=== PATIENT | female | born 1985 | race Caucasian/White ===

== ENCOUNTER 2018-12-11 20:59 | Inpatient (IN) | payer MEDICAID ==
[2018-12-11] MEDS: LACTATED RINGER'S 1,000 ML IV ×2 (21:33→23:47)
[2018-12-11 21:52] LABS: ADD UMIC YES; UR ASCORBIC ACID NEGATIVE (NEGATIVE); UR BACTERIA FEW /HPF (NONE SEEN); UR BILIRUBIN (Dip) NEGATIVE (NEGATIVE); UR BLOOD (Dip) 1+ mg/dL (NEGATIVE); UR CLARITY CLEAR (CLEAR); UR COLOR STRAW (YELLOW); UR GLUCOSE (Dip) NEGATIVE (NEGATIVE); UR KETONES (Dip) NEGATIVE (NEGATIVE); UR LEUKOCYTE ESTERASE (Dip) NEGATIVE Leu/ul (NEGATIVE); UR NITRITE (Dip) NEGATIVE (NEGATIVE); UR RBC 1 /HPF (0-5); UR SPECIFIC GRAVITY (Dip) 1.002 (1.003-1.030); UR SQUAMOUS EPITHELIAL CELL FEW /HPF (FEW); UR TOTAL PROTEIN (Dip) NEGATIVE (NEGATIVE); UR UROBILINOGEN (Dip) NEGATIVE (NEGATIVE); UR WBC 0 /HPF (0-5)
[2018-12-11] MEDS: TERBUTALINE 1 MG/ML INJ SC (22:51)
[2018-12-11] MEDS: NIFEdipine 10 MG CAP PO (23:44)
[2018-12-12] MEDS: LACTATED RINGER'S 1,000 ML IV ×3 (00:40→19:02)
[2018-12-12] MEDS: MAGNESIUM SULFATE 4 GM/100 ML 100 ML IV (01:11)
[2018-12-12] MEDS: MAGNESIUM SULFATE 20 GM/500 ML 500 ML IV ×3 (01:39→22:54)
[2018-12-12 07:41] LABS: MAGNESIUM 5.3 mg/dl (1.7-2.5)
[2018-12-12] MEDS: ACETAMINOPHEN 325 MG TAB PO ×3 (07:55→20:18)
[2018-12-12] MEDS: PRENATAL VITAMIN PO (10:11)
[2018-12-12 13:08] LABS: MAGNESIUM 5.8 mg/dl (1.7-2.5)
[2018-12-12 18:50] LABS: MAGNESIUM 5.4 mg/dl (1.7-2.5)
[2018-12-13 01:44] LABS: MAGNESIUM 6.1 mg/dl (1.7-2.5)
[2018-12-13] MEDS: ACETAMINOPHEN 325 MG TAB PO ×2 (05:35→08:44)
[2018-12-13 07:37] LABS: MAGNESIUM 6.2 mg/dl (1.7-2.5)
[2018-12-13] MEDS: PRENATAL VITAMIN PO (08:44)
[2018-12-13] MEDS: MAGNESIUM SULFATE 20 GM/500 ML 500 ML IV (08:47)
[2018-12-13] MEDS: LACTATED RINGER'S 1,000 ML IV ×2 (08:49→18:31)
[2018-12-13 13:09] LABS: MAGNESIUM 5.1 mg/dl (1.7-2.5)
[2018-12-13] MEDS: NIFEdipine 10 MG CAP PO ×2 (15:56→22:42)
[2018-12-14] MEDS ORDERED: NIFEdipine 10 MG CAP PO
[2018-12-14] MEDS: LACTATED RINGER'S 1,000 ML IV (02:02)
[2018-12-14] MEDS: NIFEdipine 10 MG CAP PO (04:01)
== END 2018-12-14 10:30 | disposition home or self-care (01) | DRG 833 ==
LOC: OBT 20:59 → L-D 21:00
DX: O60.03 Preterm labor without delivery, third trimester (principal); Z3A.35 35 weeks gestation of pregnancy
CPT/HCPCS: 76815; 76817; 76818; 81001; 83735; 96360; 96361

== ENCOUNTER 2018-12-28 23:15 | Outpatient (CLI) | payer MEDICAID ==
[2018-12-29 00:52] LABS: ADD UMIC YES; UR ASCORBIC ACID 40 mg/dL (NEGATIVE); UR BACTERIA FEW /HPF (NONE SEEN); UR BILIRUBIN (Dip) NEGATIVE (NEGATIVE); UR BLOOD (Dip) 1+ mg/dL (NEGATIVE); UR CLARITY SLIGHTLY CLOUDY (CLEAR); UR COLOR AMBER (YELLOW); UR GLUCOSE (Dip) NEGATIVE (NEGATIVE); UR KETONES (Dip) 1+ mg/dL (NEGATIVE); UR LEUKOCYTE ESTERASE (Dip) NEGATIVE Leu/ul (NEGATIVE); UR MUCUS MANY /HPF (NONE SEEN); UR NITRITE (Dip) NEGATIVE (NEGATIVE); UR RBC 11 /HPF (0-5); UR SPECIFIC GRAVITY (Dip) 1.032 (1.003-1.030); UR SQUAMOUS EPITHELIAL CELL FEW /HPF (FEW); UR TOTAL PROTEIN (Dip) 1+ mg/dl (NEGATIVE); UR UROBILINOGEN (Dip) 2+ mg/dL (NEGATIVE); UR WBC 4 /HPF (0-5)
== END 2018-12-29 02:32 | disposition home or self-care (01) ==
LOC: OBT 23:15 → L-D 23:15 → OBT 12-29 02:32
DX: O62.9 Abnormality of forces of labor, unspecified (principal); Z3A.36 36 weeks gestation of pregnancy
CPT/HCPCS: 76818; 81001

== ENCOUNTER 2019-01-05 20:17 | Inpatient (IN) | payer MEDICAID ==
[2019-01-05] MEDS ORDERED: MISOPROSTOL 200 MCG TAB PR (22:00)
[2019-01-05] MEDS ORDERED: METHYLERGONOVINE 0.2 MG INJ IM (22:00)
[2019-01-05] MEDS ORDERED: CARBOPROST 250 MCG INJ IM (22:00)
[2019-01-05] MEDS ORDERED: OXYTOCIN 30 UNITS/LR 500 ML IV (22:00)
[2019-01-05 22:13] LABS: ADD MAN DIFF? NO
[2019-01-05 22:16] LABS: WHITE BLOOD COUNT 11.9 10^3/ul (4.8-10.8)
[2019-01-05 22:16] LABS: BASOPHILS % 0.3 % (0.0-2.0); EOSINOPHILS % 0.3 % (0.0-7.0); HEMATOCRIT 39.2 % (37.0-47.0); HEMOGLOBIN 13.4 g/dl (12.0-16.0); LYMPHOCYTES # 2.4 10^3/ul (0.8-2.9); LYMPHOCYTES % 19.8 % (15.0-51.0); MEAN CORPUSCULAR HGB CONC 34.2 g/dl (32.0-37.0); MEAN CORPUSCULAR VOLUME 87.9 fl (82.0-101.0); MEAN PLATELET VOLUME 11.4 fl (7.4-10.4); MONOCYTE # 0.9 10^3/ul (0.3-0.9); MONOCYTES % 7.2 % (0.0-11.0); NEUTROPHIL # 8.6 10^3/ul (1.6-7.5); NEUTROPHILS % 71.9 % (39.0-77.0); PLATELET COUNT 245 10^3/UL (140-415); RED BLOOD COUNT 4.46 10^6/ul (4.20-5.40)
[2019-01-05] MEDS: LACTATED RINGER'S 1,000 ML IV (22:19)
[2019-01-05] MEDS ORDERED: ALBUTEROL 0.083% (NEB) 2.5 MG/3 ML AMP HHN (22:30)
[2019-01-05] MEDS ORDERED: HYDROmorphONE 0.5 MG/0.5 ML SYG IV ×2 (22:30)
[2019-01-05] MEDS ORDERED: ONDANSETRON 4 MG INJ IV ×2 (22:30)
[2019-01-05] MEDS ORDERED: DIPHENHYDRAMINE 50 MG INJ IV (22:30)
[2019-01-05] MEDS: ONDANSETRON 4 MG INJ IV (22:30)
[2019-01-05] MEDS ORDERED: HYDROmorphONE 1 MG/5 ML IV SYRINGE IV ×3 (22:30)
[2019-01-05] MEDS: METOCLOPRAMIDE 10 MG INJ IV (22:30)
[2019-01-05] MEDS ORDERED: METOCLOPRAMIDE 10 MG INJ IV (22:30)
[2019-01-05] MEDS ORDERED: FENTAnyl 50 MCG/ML VIAL IV ×3 (22:30)
[2019-01-05] MEDS ORDERED: NALOXONE (0.4 MG/ML) INJ IV (22:30)
[2019-01-05] MEDS ORDERED: KETOROLAC 30 MG INJ IV (22:30)
[2019-01-05 22:38] LABS: INR 0.82; PROTIME 11.4 Sec (11.9-14.9); PT RATIO 0.9
[2019-01-05 22:39] LABS: PARTIAL THROMBOPLASTIN TIME 24.3 Sec (23.0-35.0)
[2019-01-05 23:12] LABS: HEPATITIS B SURFACE ANTIGEN NEGATIVE (NEGATIVE)
[2019-01-05] MEDS ORDERED: morphine SULFATE/PF (10 MG/10 ML) INJ (23:28)
[2019-01-05] MEDS: AZITHROMYCIN 500MG/NS (PMX) 250 ML IVPB (23:45)
[2019-01-05 23:57] LABS: ALANINE AMINOTRANSFERASE 22 IU/L (13-69); ALBUMIN 3.4 g/dl (3.3-4.9); ALBUMIN/GLOBULIN RATIO 1.03; ALKALINE PHOSPHATASE 237 IU/L (42-121); ANION GAP 9 (5-13); ASPARTATE AMINO TRANSFERASE 21 IU/L (15-46); BILIRUBIN,INDIRECT 0.4 mg/dl (0-1.1); BILIRUBIN,TOTAL 0.4 mg/dl (0.2-1.3); BLOOD UREA NITROGEN 10 mg/dl (7-20); CALCIUM 9.6 mg/dl (8.4-10.2); CARBON DIOXIDE 22 mmol/L (21-31); CHLORIDE 106 mmol/L (97-110); CREATININE 0.59 mg/dl (0.44-1.00); Estimated GFR > 60 mL/min (>60); GLUCOSE 103 mg/dl (70-220); SODIUM 137 mmol/L (135-144); TOTAL PROTEIN 6.7 g/dl (6.1-8.1)
[2019-01-06] MEDS ORDERED: PHENYLephrine (100 MCG/ML) 10ML SYG
[2019-01-06] MEDS ORDERED: OXYTOCIN 30 UNITS/LR 500 ML BAG IV
[2019-01-06] MEDS: CEFAZOLIN 2 GM/50 ML (PMX) 50 ML IVPB (01:49)
[2019-01-06] MEDS: OXYTOCIN 30 UNITS/LR 500 ML IV ×3 (01:50→05:16)
[2019-01-06] MEDS: KETOROLAC 30 MG INJ IV ×2 (01:57→12:30)
[2019-01-06 04:08] LABS: URIC ACID 5.1 mg/dl (3.1-7.9)
[2019-01-06 04:23] LABS: ADD UMIC YES; UR ASCORBIC ACID NEGATIVE (NEGATIVE); UR BACTERIA FEW /HPF (NONE SEEN); UR BILIRUBIN (Dip) NEGATIVE (NEGATIVE); UR BLOOD (Dip) 2+ mg/dL (NEGATIVE); UR CLARITY CLEAR (CLEAR); UR COLOR YELLOW (YELLOW); UR GLUCOSE (Dip) NEGATIVE (NEGATIVE); UR KETONES (Dip) NEGATIVE (NEGATIVE); UR LEUKOCYTE ESTERASE (Dip) NEGATIVE Leu/ul (NEGATIVE); UR NITRITE (Dip) NEGATIVE (NEGATIVE); UR RBC 26 /HPF (0-5); UR SPECIFIC GRAVITY (Dip) 1.012 (1.003-1.030); UR TOTAL PROTEIN (Dip) NEGATIVE (NEGATIVE); UR UROBILINOGEN (Dip) NEGATIVE (NEGATIVE); UR WBC 1 /HPF (0-5)
[2019-01-06] MEDS: LACTATED RINGER'S 1,000 ML IV ×3 (04:34→16:53)
[2019-01-06] MEDS ORDERED: DIPHENHYDRAMINE 50 MG INJ IV (05:00)
[2019-01-06] MEDS ORDERED: CARBOPROST 250 MCG INJ IM (05:00)
[2019-01-06] MEDS ORDERED: METHYLERGONOVINE 0.2 MG INJ IM (05:00)
[2019-01-06] MEDS ORDERED: ZOLPIDEM 5 MG TAB PO (05:00)
[2019-01-06] MEDS ORDERED: ONDANSETRON 4 MG INJ IV (05:00)
[2019-01-06] MEDS ORDERED: OXYTOCIN 30 UNITS/LR 500 ML IV (05:00)
[2019-01-06] MEDS ORDERED: MISOPROSTOL 200 MCG TAB PR (05:00)
[2019-01-06] MEDS: DIPHENHYDRAMINE 50 MG INJ IV (05:16)
[2019-01-06] MEDS: SENNA/DOCUSATE NA (8.6MG/50MG) TAB PO ×2 (09:00→20:58)
[2019-01-06 15:50] LABS: RAPID PLASMA REAGIN NONREACTIVE (NR)
[2019-01-06] MEDS: IBUPROFEN 600 MG TAB PO (23:40)
[2019-01-07] MEDS: OXYCODONE/ACETAMINOPHEN (5/325) TAB PO ×3 (00:51→17:34)
[2019-01-07] MEDS: LACTATED RINGER'S 1,000 ML IV (01:00)
[2019-01-07] MEDS: IBUPROFEN 600 MG TAB PO ×4 (05:28→23:35)
[2019-01-07 06:35] LABS: ADD MAN DIFF? NO
[2019-01-07 06:40] LABS: WHITE BLOOD COUNT 11.7 10^3/ul (4.8-10.8)
[2019-01-07 06:40] LABS: BASOPHILS % 0.3 % (0.0-2.0); EOSINOPHILS # 0.1 10^3/ul (0.0-0.5); EOSINOPHILS % 0.8 % (0.0-7.0); HEMATOCRIT 31.5 % (37.0-47.0); HEMOGLOBIN 10.9 g/dl (12.0-16.0); LYMPHOCYTES # 2.2 10^3/ul (0.8-2.9); LYMPHOCYTES % 18.3 % (15.0-51.0); MEAN CORPUSCULAR HEMOGLOBIN 31.2 pg (29.0-33.0); MEAN CORPUSCULAR HGB CONC 34.6 g/dl (32.0-37.0); MEAN CORPUSCULAR VOLUME 90.3 fl (82.0-101.0); MEAN PLATELET VOLUME 11.3 fl (7.4-10.4); MONOCYTE # 0.7 10^3/ul (0.3-0.9); MONOCYTES % 5.8 % (0.0-11.0); NEUTROPHIL # 8.7 10^3/ul (1.6-7.5); NEUTROPHILS % 74.1 % (39.0-77.0); PLATELET COUNT 208 10^3/UL (140-415); RED BLOOD COUNT 3.49 10^6/ul (4.20-5.40); RED CELL DISTRIBUTION WIDTH 12.2 % (11.5-14.5)
[2019-01-07] MEDS: LANOLIN HPA 1 PKT TOP (08:36)
[2019-01-07] MEDS: SENNA/DOCUSATE NA (8.6MG/50MG) TAB PO ×2 (08:36→21:22)
[2019-01-08] MEDS: OXYCODONE/ACETAMINOPHEN (5/325) TAB PO ×4 (01:03→20:34)
[2019-01-08] MEDS: IBUPROFEN 600 MG TAB PO ×3 (05:30→17:55)
[2019-01-08] MEDS: SENNA/DOCUSATE NA (8.6MG/50MG) TAB PO ×2 (08:26→20:34)
[2019-01-08] MEDS: MAGNESIUM HYDROXIDE 30ML CUP PO (20:55)
[2019-01-09] MEDS: IBUPROFEN 600 MG TAB PO ×3 (06:01→12:08)
[2019-01-09] MEDS: SENNA/DOCUSATE NA (8.6MG/50MG) TAB PO (09:08)
[2019-01-09] MEDS: MAGNESIUM HYDROXIDE 30ML CUP PO (09:09)
[2019-01-09] MEDS: DIPHTH/TET/ACEL PERTUSS (ADULT) 0.5 ML VIAL IM* (12:10)
== END 2019-01-09 13:20 | disposition home or self-care (01) | DRG 785 ==
LOC: OBT 20:17 → L-D 01-06 01:24 → PP1 01-06 03:59 → L-D 20:39 → OBT 21:55 → L-D 21:55
PROVIDERS: Obstetrics & Gynecology
PROC: 10D00Z1 Extraction of Products of Conception, Low, Open Approach (ICD-10-PCS; principal; 2019-01-06)
PROC: 0UB70ZZ Excision of Bilateral Fallopian Tubes, Open Approach (ICD-10-PCS; 2019-01-06)
DX: O34.211 Maternal care for low transverse scar from previous cesarean delivery (principal); Z3A.37 37 weeks gestation of pregnancy; Z37.0 Single live birth; Z30.2 Encounter for sterilization
CPT/HCPCS: 80053; 81001; 84560; 85025; 85610; 85730; 86592; 86850; 86900; 86901; 87086; 87340; 88302; 90715; 99464